=== PATIENT | male | born 1970 | race Caucasian/White ===

== ENCOUNTER 2020-09-20 19:32 | Emergency (ER) | payer OTHER ==
[2020-09-20] MEDS ORDERED: diphenhydrAMINE 50 MG/ML VIAL ONE (20:03)
[2020-09-20] MEDS ORDERED: methylPREDNISolone Sod Succ/PF 125 MG/2 ML VIAL ONE (20:03)
[2020-09-20] MEDS ORDERED: Ibuprofen 200 MG TAB ONE (20:03)
== END 2020-09-20 20:55 | disposition home or self-care (01) ==
LOC: NAV ERS 19:32
DX: T63.481A Toxic effect of venom of other arthropod, accidental (unintentional), initial encounter (principal)
CPT/HCPCS: 96374; 96375; J1200; J2930